=== PATIENT | male | born 1980 | race Caucasian/White ===

== ENCOUNTER 2022-10-13 07:15 | Emergency (ER) | payer BC, OTHER | END 2022-10-13 08:20 | disposition home or self-care (01) | LOC: LB.ED 07:15 | DX: H10.13 Acute atopic conjunctivitis, bilateral (principal); I10 Essential (primary) hypertension; Z79.82 Long term (current) use of aspirin; Z79.899 Other long term (current) drug therapy | CPT/HCPCS: 99283 ==